=== PATIENT | female | born 1985 | race Caucasian/White ===

== ENCOUNTER 2019-06-29 14:59 | Inpatient (IN) | payer MEDICAID ==
[2019-06-29] MEDS ORDERED: MISOPROSTOL 200 MCG TAB PR ×2 (15:30→21:00)
[2019-06-29] MEDS ORDERED: CEFAZOLIN 2 GM/50 ML (PMX) 50 ML IVPB (15:30)
[2019-06-29] MEDS ORDERED: METHYLERGONOVINE 0.2 MG INJ IM ×2 (15:30→21:00)
[2019-06-29] MEDS ORDERED: OXYTOCIN 30 UNITS/LR 500 ML IV ×3 (15:30→21:00)
[2019-06-29] MEDS ORDERED: CARBOPROST 250 MCG INJ IM ×2 (15:30→21:00)
[2019-06-29 15:59] LABS: ADD MAN DIFF? NO
[2019-06-29] MEDS: LACTATED RINGER'S 1,000 ML IV (15:59)
[2019-06-29 16:01] LABS: ABNORMAL IP MESSAGE 1; BASOPHILS % 0.3 % (0.0-2.0); EOSINOPHILS % 0.4 % (0.0-7.0); HEMATOCRIT 39.5 % (37.0-47.0); HEMOGLOBIN 13.3 g/dl (12.0-16.0); LYMPHOCYTES # 1.7 10^3/ul (0.8-2.9); LYMPHOCYTES % 24.9 % (15.0-51.0); MEAN CORPUSCULAR HEMOGLOBIN 30.6 pg (29.0-33.0); MEAN CORPUSCULAR HGB CONC 33.7 g/dl (32.0-37.0); MEAN CORPUSCULAR VOLUME 90.8 fl (82.0-101.0); MEAN PLATELET VOLUME 13.5 fl (7.4-10.4); MONOCYTE # 0.5 10^3/ul (0.3-0.9); MONOCYTES % 7.2 % (0.0-11.0); NEUTROPHIL # 4.7 10^3/ul (1.6-7.5); NEUTROPHILS % 66.5 % (39.0-77.0); PLATELET COUNT 107 10^3/UL (140-415); RED BLOOD COUNT 4.35 10^6/ul (4.20-5.40); RED CELL DISTRIBUTION WIDTH 14.6 % (11.5-14.5)
[2019-06-29 16:11] LABS: POSITIVE DIFF @See below
[2019-06-29 16:20] LABS: INR 0.84; PROTIME 11.6 Sec (11.9-14.9); PT RATIO 0.9
[2019-06-29 16:21] LABS: PARTIAL THROMBOPLASTIN TIME 26.4 Sec (23.0-35.0)
[2019-06-29 17:07] LABS: HEPATITIS B SURFACE ANTIGEN NEGATIVE (NEGATIVE)
[2019-06-29] MEDS ORDERED: morphine SULFATE/PF (10 MG/10 ML) INJ (19:40)
[2019-06-29] MEDS ORDERED: ONDANSETRON 4 MG INJ (19:41)
[2019-06-29] MEDS ORDERED: DEXAMETHASONE 4 MG/ML 1 ML INJ (19:41)
[2019-06-29] MEDS: CEFAZOLIN 2 GM/50 ML (PMX) 50 ML IVPB (21:00)
[2019-06-29] MEDS ORDERED: NACL 0.9% 3 ML SYG IV (21:00)
[2019-06-29] MEDS: OXYTOCIN 30 UNITS/LR 500 ML IV (21:53)
[2019-06-29] MEDS ORDERED: HYDROmorphONE 0.5 MG/0.5 ML SYG IV ×2 (22:30)
[2019-06-29] MEDS ORDERED: ONDANSETRON 4 MG INJ IV (22:30)
[2019-06-29] MEDS ORDERED: NALOXONE (0.4 MG/ML) INJ IV (22:30)
[2019-06-29] MEDS ORDERED: ZOLPIDEM 5 MG TAB PO (22:30)
[2019-06-29] MEDS: KETOROLAC 30 MG INJ IV (22:32)
[2019-06-29] MEDS: DIPHENHYDRAMINE 50 MG INJ IV (22:32)
[2019-06-30] MEDS: OXYTOCIN 30 UNITS/LR 500 ML IV (01:41)
[2019-06-30] MEDS: IBUPROFEN 600 MG TAB PO ×5 (05:42→23:39)
[2019-06-30] MEDS: CEFAZOLIN 2 GM/50 ML (PMX) 50 ML IVPB ×3 (06:19→13:27)
[2019-06-30] MEDS: KETOROLAC 30 MG INJ IV ×2 (06:20→12:38)
[2019-06-30 07:15] LABS: ADD MAN DIFF? NO
[2019-06-30 07:24] LABS: WHITE BLOOD COUNT 9.3 10^3/ul (4.8-10.8)
[2019-06-30 07:24] LABS: ABNORMAL IP MESSAGE 1; BASOPHILS % 0.1 % (0.0-2.0); HEMATOCRIT 36.4 % (37.0-47.0); HEMOGLOBIN 12.3 g/dl (12.0-16.0); LYMPHOCYTES # 1.3 10^3/ul (0.8-2.9); LYMPHOCYTES % 14.3 % (15.0-51.0); MEAN CORPUSCULAR HEMOGLOBIN 30.8 pg (29.0-33.0); MEAN CORPUSCULAR HGB CONC 33.8 g/dl (32.0-37.0); MEAN CORPUSCULAR VOLUME 91.2 fl (82.0-101.0); MEAN PLATELET VOLUME 13.4 fl (7.4-10.4); MONOCYTE # 0.6 10^3/ul (0.3-0.9); MONOCYTES % 6.7 % (0.0-11.0); NEUTROPHIL # 7.3 10^3/ul (1.6-7.5); NEUTROPHILS % 78.3 % (39.0-77.0); PLATELET COUNT 101 10^3/UL (140-415); RED BLOOD COUNT 3.99 10^6/ul (4.20-5.40); RED CELL DISTRIBUTION WIDTH 14.4 % (11.5-14.5)
[2019-06-30 07:29] LABS: POSITIVE DIFF @See below
[2019-06-30] MEDS: LACTATED RINGER'S 1,000 ML IV (12:37)
[2019-06-30 16:15] LABS: RAPID PLASMA REAGIN NONREACTIVE (NR)
[2019-06-30] MEDS: OXYCODONE/ACETAMINOPHEN (5/325) TAB PO (22:20)
[2019-07-01] MEDS: IBUPROFEN 600 MG TAB PO ×4 (06:29→23:48)
[2019-07-01] MEDS: OXYCODONE/ACETAMINOPHEN (5/325) TAB PO ×2 (09:01→22:50)
[2019-07-01] MEDS: BISACODYL 10 MG SUPP PR (20:10)
[2019-07-02] MEDS: IBUPROFEN 600 MG TAB PO ×3 (06:12→18:17)
[2019-07-02] MEDS: OXYCODONE/ACETAMINOPHEN (5/325) TAB PO (09:58)
[2019-07-03] MEDS: IBUPROFEN 600 MG TAB PO ×4 (00:21→17:18)
[2019-07-03] MEDS: OXYCODONE/ACETAMINOPHEN (5/325) TAB PO (05:51)
== END 2019-07-03 19:25 | disposition home or self-care (01) | DRG 785 ==
LOC: L-D 14:59 → PP1 22:49
PROVIDERS: Obstetrics & Gynecology
PROC: 10D00Z1 Extraction of Products of Conception, Low, Open Approach (ICD-10-PCS; principal; 2019-06-29 17:30)
PROC: 0UB70ZZ Excision of Bilateral Fallopian Tubes, Open Approach (ICD-10-PCS; 2019-06-29 17:30)
DX: O32.8XX0 Maternal care for other malpresentation of fetus, not applicable or unspecified (principal); O34.211 Maternal care for low transverse scar from previous cesarean delivery; R07.9 Chest pain, unspecified; Z3A.39 39 weeks gestation of pregnancy; Z37.0 Single live birth; Z30.2 Encounter for sterilization
CPT/HCPCS: 71046; 85025; 85610; 85730; 86592; 86850; 86900; 86901; 87340; 88302; 93005; 93970; 99464